=== PATIENT | female | born 1940 | race Two or more races ===

== ENCOUNTER → 2016-11-10 | Outpatient (CLI) | payer OTHER ==
[~2016-11-10] MED LIST: ACET-66 PO; ADV250 IH; ALBU6.7H IH; CETI5TAB12 PO; CIPR7.5D3 TP; FLUT16H NASAL; LEVO100T4 PO; LORA0.5T2 PO; RANI150T7 PO
== END | disposition home or self-care (01) ==
LOC: RESP 09:14
PROVIDERS: ATTEND Internal Medicine Critical Care Medicine
DX: J44.9 Chronic obstructive pulmonary disease, unspecified (principal); G47.33 Obstructive sleep apnea (adult) (pediatric)
CPT/HCPCS: 94060